=== PATIENT | female | born 1965 | race Caucasian/White ===

== ENCOUNTER 2017-07-23 06:14 | Day surgery (SDC) | payer OTHER ==
[2017-07-20 12:34] VITALS: BMI 22.3
[2017-07-23 07:14] VITALS: O2SAT 100
[2017-07-23] MEDS ORDERED: Lactated Ringer's 1,000 ML IV ONE (07:27)
[2017-07-23] MEDS ORDERED: cefOXitin IV 1 gm in Dextrose 0 GM/0 ML BAG IVPB ONE (07:42)
[2017-07-23] MEDS ORDERED: Strong Iodine Topical Sol. 5%-10% ONE (07:47)
[2017-07-23] MEDS ORDERED: Lidocaine 2% w Epi 1:100,000 Inj IJ ONE (08:12)
[2017-07-23] MEDS ORDERED: Propofol 10 mg/ml Inj (20 ML) ONE (08:15)
[2017-07-23] MEDS ORDERED: Midazolam 2 MG/2 ML VIAL ONE (08:15)
[2017-07-23] MEDS ORDERED: Labetalol 25mg/5ml Syringe ONE (09:10)
[2017-07-23 11:22] VITALS: BP 118/67; PULSE 64; RESP 18; TEMP 97.6
--- NOTE | 2017-07-29 10:31 | OP ---
PROCEDURE DATE: 07/23/2017 PREOPERATIVE DIAGNOSIS: Cervical intraepithelial neoplasia, grade 1. POSTOPERATIVE DIAGNOSIS: Cervical intraepithelial neoplasia, grade 1. OPERATIVE INDICATION: This is a 51-year-old who desires hysterectomy with abnormal Pap smear and CHICO 1 on colposcopy. This is an indicated diagnostic procedure prior to performing hysterectomy. The patient was discussed with risks, benefits and alternatives and agreed to proceed. OPERATION PERFORMED: Deep loop electrosurgical excision procedure. SURGEON: Nida Gramajo MD. TYPE OF ANESTHESIA: General anesthesia. PERTINENT FINDINGS: Bimanual examination revealed midline uterus. Cervix did not appear to have any gross lesions. Lugol's solution revealed minimal areas of non uptake. SPECIMEN: Ectocervix with anterior and posterior portions with 1 stitch at 12 o' clock marking the anterior portion and 2 stitches at 6 o' clock marking the posterior portion. ESTIMATED BLOOD LOSS: Minimal. DESCRIPTION OF THE PROCEDURE: The patient was taken to the OR where she was placed and draped in the usual sterile fashion. General anesthesia was induced without difficulty. Preoperative exam was done with findings as above. At this time, the cervix was visualized with a coated speculum. Lugol's solution was painted along the entire cervix and vaginal wall. Areas of non uptake were noted. A 10 mL of lidocaine with epinephrine was injected circumferentially along the cervix. The loop electrode was used to remove the anterior and posterior portion of the cervix separately, this was sent to pathology. Ball loop electrode was used to obtain hemostasis. The bed of the cervical tissue Nida Gramajo MD
== END 2017-07-23 11:21 | disposition home or self-care (01) ==
LOC: C.SDS 06:14
PROVIDERS: ATTEND Obstetrics & Gynecology
DX: N87.0 Mild cervical dysplasia (principal)
CPT/HCPCS: 57460; 58110; 88305; J1100; J2001; J2250; J2405; J2704; J3010; J7120

== ENCOUNTER 2017-08-27 10:11 | Day surgery (SDC) | payer OTHER ==
[2017-07-20 12:34] VITALS: BMI 22.3
[2017-08-27] MEDS ORDERED: Propofol 10 mg/ml Inj (20 ML) ONE (13:14)
[2017-08-27] MEDS ORDERED: Midazolam 2 MG/2 ML VIAL ONE (13:14)
[2017-08-27] MEDS ORDERED: Rocuronium 10 mg/ml (5 ml) ONE (13:28)
[2017-08-27] MEDS ORDERED: Succinylcholine Chloride 20 mg/ml Syr (5 ml) IV ONE (13:28)
[2017-08-27] MEDS ORDERED: Lidocaine Hydrochloride 5 ML INJ ONE (13:29)
[2017-08-27] MEDS ORDERED: cefOXitin IV 1 gm in Dextrose 2 GM/100 ML BAG IVPB ONE (13:32)
[2017-08-27] MEDS ORDERED: Lactated Ringer's 1,000 ML IV ONE ×2 (13:36→15:37)
[2017-08-27] MEDS ORDERED: Clindamycin 2% Vaginal Cream(40 gm) ONE (14:37)
[2017-08-27] MEDS ORDERED: Neostigmine Methylsulfate 3mg/3ml Syringe IV ONE (15:43)
[2017-08-27] MEDS ORDERED: Oxycodone/Acetaminophen 5/325 mg Tab PO PRN (16:03)
[2017-08-27] MEDS ORDERED: HYDROmorphone 0.5 mg/0.5 ml ISec IVP PRN (16:11)
[2017-08-27] MEDS ORDERED: Sodium Chloride 0.9% 1,000 ML IV SCH (16:15)
[2017-08-27] MEDS ORDERED: HYDROmorphone 1 mg/ml ISec ONE (16:31)
[2017-08-27] MEDS ORDERED: Sodium Chloride 0.9% 1,000 ML IV ONE (18:12)
[2017-08-28 04:45] VITALS: TEMP 98.7
[2017-08-28 07:06] LABS: CHLORIDE 102 mmol/L (98-107); POTASSIUM 3.5 mmol/L (3.6-5.2); SODIUM 134 mmol/L (132-148)
[2017-08-28 07:09] LABS: BLOOD UREA NITROGEN 7 mg/dL (7-17); CALCIUM 8.2 mg/dl (8.6-10.4); CARBON DIOXIDE 26 mmol/L (22-30); GFR AFRICAN-AMERICAN > 60; GLUCOSE,RANDOM 82 mg/dL (65-105); HEMATOCRIT 34.9 % (34.0-47.0); MEAN CORPUSCULAR HEMOGLOBIN 30.6 pg (27.0-31.0); MEAN CORPUSCULAR HGB CONC 33.6 g/dL (33.0-37.0); MEAN PLATELET VOLUME 9.4 fL (7.2-11.7); RED CELL DISTRIBUTION WIDTH 12.6 % (11.5-14.5)
[2017-08-28 07:15] LABS: WHITE BLOOD COUNT 9.7 K/uL (4.8-10.8)
[2017-08-28 09:18] VITALS: BP 106/65; PULSE 84; RESP 18; O2SAT 98
[2017-08-28] MEDS ORDERED: Pneumococcal 23-Valent Vaccine IM ONE (10:00)
[2017-08-28] MEDS ORDERED: Influenza Vaccine 60 mcg/0.5 mL SYR (4YR UP) IM ONE (10:00)
--- NOTE | 2017-09-07 10:45 | OP ---
PROCEDURE DATE: 08/27/2017 PREOPERATIVE DIAGNOSES: Stage 2 uterovaginal prolapse, cervical intraepithelial neoplasia 1, chronic pelvic pain. POSTOPERATIVE DIAGNOSES: Stage 2 uterovaginal prolapse, cervical intraepithelial neoplasia 1, chronic pelvic pain. OPERATIVE PROCEDURES: Total laparoscopic hysterectomy, bilateral salpingo-oophorectomy, lysis of adhesions, cystoscopy. SURGEON: Nida Gramajo MD OPERATING ROOM TECHNOLOGIST: Brielle Cartwright MD OPERATIVE FINDINGS: Adhesions of the cervix to the anterior vaginal fornix, small fibroid uterus, normal appearing uterus, tubes and ovaries, bilateral ureteral jet seen on cystoscopy at the end of the procedure. OPERATIVE INDICATIONS: This is a 51-year-old with chronic pelvic pain and dyspareunia. She was found to have stage 2 uterovaginal prolapse with symptomatic bladder discomfort. She was also found to have cervical intraepithelial neoplasia 1 on colposcopy and a LEEP was done prior to procedure to confirm no further pathology. Endometrial biopsy was benign. The patient was consented to the following procedure and also discussed that the procedure may not relieve the entirety of her pelvic pain. OPERATIVE PROCEDURE: After induction of satisfactory general endotracheal anesthesia, the patient was placed in dorsal lithotomy position with preoperative antibiotics. The patient was prepped and draped in the usual sterile fashion. Exam was done under anesthesia with above findings. The bladder was inflated with Buckley the entire procedure and a VCare uterine manipulator was placed in the uterus. We then turned to the portion of the procedure. The patient was entered with a 5-mm Optiview trocar, visually directed entry. It was confirmed that the OG tube was functioning prior to entering the body. Abdominal survey was done with the above findings. Additional 5-mm trocars were placed in the bilateral lower quadrants. The intraabdominal survey was done with above findings with adhesions, but no other findings. Normal-appearing tubes and ovaries except a small fibroid uterus. A LigaSure device was used for electrosurgery. The respective round ligament was coagulated and transected. The posterior leaf of the broad ligament was opened and the uteroovarian ligament was transected and coagulated. The anterior leaf of the broad ligament was dissected down to the level of the vesicouterine fold and the bladder was dissected off the cervical cuff. Same procedure was repeated on the opposite side. The uterine artery was coagulated and dissected carefully at the level of the cardinal ligament. After the uterine artery was secured, the vaginal cuff delineated by the VCare, was entered using a monopolar hook circumferentially until the cervix was detached from the top of the vagina. The speculum was removed from the vagina in its entirety. Attention was then turned to the adnexa. The infundibulopelvic ligaments were coagulated and transected after confirming that the ureter was not in the surgical field. After confirming hemostasis, additional FloSeal was placed in the operative field. Cystoscopy was then done using a degree cystoscope, confirming bilateral ureteral jets and no foreign bodies in the bladder. The Buckley was replaced to drain the bladder and the vagina was packed with gauze, infused with clindamycin antibiotic gel. There was good support of the vaginal cuff and no additional anterior or posterior repair was needed. The vaginal cuff was closed with interrupted sutures of 0 Vicryl. The abdominal incisions were closed with 4-0 Monocryl after exsufflating and deflating the abdomen of CO2. All counts were correct at the end of the procedure. There was no evidence of injury. The patient was awake, and taken to the recovery room in stable condition. Nida Gramajo MD
== END 2017-08-28 15:51 | disposition home or self-care (01) ==
LOC: C.9S 10:11 → C.SDS 10:11 → UNDOADMIN 10:11 → C.9S 16:04 → C.6T 18:25 → C.SDS 08-28 15:51
PROVIDERS: ATTEND Obstetrics & Gynecology
DX: N81.2 Incomplete uterovaginal prolapse (principal); N84.0 Polyp of corpus uteri; N87.0 Mild cervical dysplasia; G89.29 Other chronic pain
CPT/HCPCS: 36415; 58571; 80048; 85027; 86850; 86900; 88307; C2615; J0694; J1170; J2250; J2704; J2710; J3010; J7030; J7040; J7120

== ENCOUNTER 2018-01-05 15:33 | Observation (INO) | payer OTHER ==
[2018-01-05 15:34] VITALS: BMI 22.3
--- NOTE | 2018-01-05 16:03 | C.PDOC ---
History Of Present Illness REFERRED BY DR GUTIERREZ. S/P SLIP AND FALL 5 DAYS AGO WHILE GETTING INTO BUS. FELL FORWARD, STRUCK FRONT OF CHEST. THEN FELL BACKWARDS UNTO BUTTOCK AREA. CO PERSIST MIDSTERNAL CHEST WALL PAIN LOCALIZED WORSE W MOVEMENT, DEEP BREATHING. NO LINK. NO ASSOC SOB, NV, DIZZY. BUTTOCK PAIN LOCALIZED WORSE W MOVEMENT, SITTING. EXAM MILD DIST NONTOXIC LUNGS CTA B/L NO W/R/R +REPRODUC PLEURITIC PAIN MIDSTERNAL CHEST WALL GEN TEND MIDSTERNAL, ATRAUM NO SWELL DEFORM OR CREPITUS SKIN INTACT CV RRR EXT +R BUTTOCK CONTUSION W LOCAL TEND BACK NO LS TEND, NO SACRAL TEND NEURO INTACT REMAINDER NEG Time Seen by Provider: 01/05/18 15:44 Chief Complaint (Nursing): Chest Pain History Per: Patient History/Exam Limitations: no limitations Onset/Duration Of Symptoms: Days Current Symptoms Are (Timing): Still Present Severity: Moderate Past Medical History Reviewed: Historical Data, Nursing Documentation, Vital Signs Vital Signs: Last Vital Signs Temp 97.5 F L 01/05/18 15:49 Pulse 76 01/05/18 16:21 Resp 12 01/05/18 16:21 BP 146/87 01/05/18 16:05 Pulse Ox 100 01/05/18 16:40 - Medical History PMH: Asthma Denies: Chronic Kidney Disease Other Surgeries: Hx of surgeries Family History: States: No Known Family Hx - Social History Hx Tobacco Use: No Hx Alcohol Use: No Hx Substance Use: No - Immunization History Hx Tetanus Toxoid Vaccination: No Hx Influenza Vaccination: No Hx Pneumococcal Vaccination: No Review Of Systems Except As Marked, All Systems Reviewed And Found Negative. Constitutional: Negative for: Fever, Chills Cardiovascular: Positive for: Chest Pain Respiratory: Negative for: Shortness of Breath Gastrointestinal: Negative for: Nausea, Vomiting Musculoskeletal: Positive for: Other (buttock pain) Neurological: Negative for: Weakness, Numbness, Dizziness Physical Exam - Physical Exam Appears: Non-toxic, Other (mild distress) Skin: Normal Color, Warm Head: Atraumatic, Normacephalic Eye(s): bilateral: Normal Inspection Chest: No Deformity, Tenderness (chest wall gen tenderness midsternal), Other ( reproducible pleuritic pain, atraumatic, no swelling, no crepitus) Cardiovascular: Other (RRR) Respiratory: Normal Breath Sounds, No Accessory Muscle Use, No Rales, No Rhonchi , No Wheezing Back: No Paraspinal Tenderness, Other (no sacral tenderness ) Extremity: Other (right buttock contusion with local tenderness) Neurological/Psych: Oriented x3, Normal Speech, Normal Motor, Normal Sensation ED Course And Treatment - Laboratory Results Result Diagrams: 01/05/18 16:19 01/05/18 16:19 ECG: Interpreted By Me ECG Rhythm: Sinus Rhythm ECG Interpretation: Normal Rate From EC O2 Sat by Pulse Oximetry: 100 (RA) Pulse Ox Interpretation: Normal Progress - Re-Evaluation Re-evaluation Note: 01/05/18 16:07 D/W DR GUTIERREZ, REQUESTS ADMISSION HOSPITALIST. WILL CONSULT. 01/05/18 16:55 D/W DR ANN STATES SAW PT IN CLINIC, PT INITIALLY W [facility] APPEARANCE DURING OFFICE EVAL TODAY. 01/05/18 17:00 D/W DR MORRISON AWARE OF ER FINDINGS. REQUESTS DIMER, BNP, ASA WILL ADMIT - Data Reviewed Data Reviewed: Lab, Diagnostic imaging, EKG, Old records - Continuity of Care Discussed patient case with:: Patient, On-call PMD-pt unassigned Discussed pt. case with erp consultant/specialty: Cardiology Medical Decision Making Medical Decision Making: Plan: --Labs --CXR --X-ray- Sternum --Toradol IV Disposition Counseled Patient/Family Regarding: Studies Performed, Diagnosis - Disposition Disposition: HOSPITALIZED Disposition Time: 17:02 Condition: STABLE Forms: [facility] (Welsh) - POA Present On Arrival: Falls Or Trauma - Clinical Impression Clinical Impression: Chest pain, Contusion, buttock - Scribe Statement The provider has reviewed the documentation as recorded by the Scribe Jose Antonio Khan Provider Attestation: All medical [facility] entries [facility] by the [facility] were at my direction and personally dictated by me. I have reviewed the chart and agree that the record accurately reflects my personal performance of the history, physical exam, medical decision making, and the department course for this patient. I have also personally directed, reviewed, and agree with the discharge instructions and disposition. Decision To Admit - Pt Status Changed To: Hospital Disposition Of: Observation - . Bed Request Type: Telemetry Admitting Physician: Lori Morrison Patient Diagnosis: Chest pain, Contusion, buttock
[2018-01-05 16:23] LABS: BASO # 0.1 K/uL (0.0-0.2); BASO % 0.8 % (0.0-2.0); EOS # 0.1 K/uL (0.0-0.7); EOS % 0.9 % (0.0-4.0); LYMPH # 2.7 K/uL (1.0-4.3); LYMPH % 38.5 % (20.0-40.0); MEAN CORPUSCULAR HEMOGLOBIN 29.8 pg (27.0-31.0); MEAN CORPUSCULAR HGB CONC 33.5 g/dL (33.0-37.0); MEAN PLATELET VOLUME 9.2 fL (7.2-11.7); MONO # 0.5 K/uL (0.0-0.8); MONO % 6.6 % (0.0-10.0); NEUT # 3.7 K/uL (1.8-7.0); NEUT % 53.2 % (50.0-75.0); NRBC % 0.2 % (0.0-2.0); RED CELL DISTRIBUTION WIDTH 13.1 % (11.5-14.5)
[2018-01-05 16:34] LABS: HEMOGLOBIN 14.9 g/dL (11.0-16.0); MEAN CELL VOLUME 88.9 fL (81.0-99.0)
[2018-01-05 16:47] LABS: BLOOD UREA NITROGEN 12 mg/dL (7-17); CALCIUM 9.4 mg/dl (8.6-10.4); GFR AFRICAN-AMERICAN > 60; GFR NON-AFRICAN AMERICAN > 60
--- NOTE | 2018-01-05 17:45 | CP.PCM.HP ---
<Bertin Mullen - Last Filed: 01/05/18 17:57> History of Present Illness - History of Present Illness History of Present Illness: H&P for Dr Jaeger's Service This is a 52 y/o F with no pmhx presenting with c/o chest pain x 5 days. She states that 5 days ago she was trying to board the bus when she slipped, fell forward and hit her chest against the stairs of the bus. When she went to stand up straight she then fell back and landed, seated on the floor. She has had back pain and chest pain for the past 5 days. She went to see Dr. Pruett today who had her bring a script to the ED for further workup of atypical chest pain. She denies any difficulty breathing but does admit that it hurts to take deep breaths in. No fevers or chills. She has pains in her abdomen, localized to the lower quadrants bilaterally which she indicates did make contact during her fall. Additionally she has pain in the lower spinal area- sacrum/coccyx. She has been taking ibuprofen at home for the pain but states that it only helps a little bit. PMD: Dr. Osei Pmhx: denies Pshx: total hysterectomy Meds: none Allergies: denies Famhx: mother has HTN Social hx: does not drink smoke or use drugs Present on Admission - Present on Admission Any Indicators Present on Admission: No Review of Systems - Constitutional Constitutional: absent: Chills, Fever, Weakness - EENT Eyes: absent: Change in Vision - Cardiovascular Cardiovascular: Chest Pain, Chest Pain at Rest. absent: Dyspnea, Pedal Edema, Syncope - Respiratory Respiratory: Pain on Inspiration (deep). absent: Cough, Dyspnea, Dyspnea on Exertion, Wheezing - Gastrointestinal Gastrointestinal: As Per HPI, Abdominal Pain. absent: Diarrhea, Hematemesis, Hematochezia, Nausea, Vomiting - Genitourinary Genitourinary: absent: Dysuria, Flank Pain, Hematuria - Musculoskeletal Musculoskeletal: As Per HPI, Back Pain. absent: Numbness, Tingling Additional comments: back pain, chest pain, pelvic/lower abdomen pain - Neurological Neurological: absent: Numbness, Focal Weakness, Paresthesias, Tingling, Weakness Past Patient History - Infectious Disease Hx of Infectious Diseases: None - Past Medical History & Family History Past Medical History?: Yes - Past Social History Smoking Status: Never Smoked - CARDIAC Hx Cardiac Disorders: No - PULMONARY Hx Asthma: Yes - NEUROLOGICAL Hx Neurological Disorder: No - HEENT Hx HEENT Problems: No - RENAL Hx Chronic Kidney Disease: No - ENDOCRINE/METABOLIC Hx Endocrine Disorders: No - HEMATOLOGICAL/ONCOLOGICAL Hx Blood Disorders: No - INTEGUMENTARY Hx Dermatological Problems: No - MUSCULOSKELETAL/RHEUMATOLOGICAL Hx Musculoskeletal Disorders: No Hx Falls: No - GASTROINTESTINAL Hx Gastrointestinal Disorders: No - GENITOURINARY/GYNECOLOGICAL Hx Genitourinary Disorders: Yes Other/Comment: HX: LOW GRADE SQUAMOUS INTRAEPITHELIAL LESION, UTERO VAGINAL PROLAPSED, STRESS INCONTINENCE. - PSYCHIATRIC Hx Substance Use: No - SURGICAL HISTORY Hx Surgeries: Yes Hx Herniorrhaphy: Yes (RIGHT INGUINAL) Other/Comment: CERVICAL LEEP - ANESTHESIA Hx Anesthesia: Yes Hx Anesthesia Reactions: No Hx Malignant Hyperthermia: No Meds Allergies/Adverse Reactions: Allergies Allergy/AdvReac Type Severity Reaction Status Date / Time No Known Allergies Allergy Verified 01/05/18 18:44 Physical Exam - Head Exam Head Exam: ATRAUMATIC, NORMOCEPHALIC - Eye Exam Eye Exam: EOMI, Normal appearance - ENT Exam ENT Exam: Mucous Membranes Moist - Respiratory Exam Respiratory Exam: Clear to Auscultation Bilateral, NORMAL BREATHING PATTERN. absent: Rales, Rhonchi, Wheezes - Cardiovascular Exam Cardiovascular Exam: REGULAR RHYTHM, +S1, +S2 - GI/Abdominal Exam GI & Abdominal Exam: Normal Bowel Sounds, Soft, Tenderness (lower quadrants b/l) . absent: Distended - Extremities Exam Extremities exam: Negative for: calf tenderness, pedal edema, tenderness - Back Exam Back exam: tenderness (sacral area/coccyx) - Neurological Exam Neurological exam: Alert, Oriented x3 - Psychiatric Exam Psychiatric exam: Normal Affect, Normal Mood - Skin Skin Exam: Dry, Warm Additional comments: no bruising/gross deformities Results - Vital Signs Recent Vital Signs: Last Vital Signs Temp 97.5 F L 01/05/18 15:49 Pulse 77 01/05/18 17:38 Resp 12 01/05/18 17:38 BP 156/87 H 01/05/18 17:38 Pulse Ox 100 01/05/18 17:38 - Labs Result Diagrams: 01/05/18 16:19 01/05/18 16:19 Labs: Laboratory Results - last 24 hr 01/05/18 01/05/18 16:19 16:19 WBC 7.0 RBC 5.00 Hgb 14.9 D Hct 44.5 MCV 88.9 D MCH 29.8 MCHC 33.5 RDW 13.1 Plt Count 331 MPV 9.2 Neut % (Auto) 53.2 Lymph % (Auto) 38.5 Dent % (Auto) 6.6 Eos % (Auto) 0.9 Baso % (Auto) 0.8 Neut # (Auto) 3.7 Lymph # (Auto) 2.7 Dent # (Auto) 0.5 Eos # (Auto) 0.1 Baso # (Auto) 0.1 Sodium 143 Potassium 3.7 Chloride 101 Carbon Dioxide 24 Anion Gap 22 H BUN 12 Creatinine 0.5 L Est GFR ( Amer) > 60 Est GFR (Non-Af Amer) > 60 Random Glucose 89 Calcium 9.4 Troponin I < 0.0120 Assessment & Plan - Assessment and Plan (Free Text) Assessment: 52 year old female presenting with 5 days of chest pain and back pain following traumatic fall Plan: Chest pain Admission to tele Consult placed to Dr. Ramirez- recs appreciated CXR review- no gross deformity/fx noted. Lungs clear- follow up official read Xray sternum reviewed-no gross deformity noted- follow up official read Trop negative x 1; NI panel q6 follow up results Follow up D-Dimer Follow up Lipid panel Follow up BNP EKG reviewed- NSR, no acute ST changes Toradol 30mg IV q6hrs prn moderate pain Likely to be MSK given nature of fall. 3 view Xray of b/l pelvis has been ordered for pain in pelvis relating to the fall. Consider further imaging of the L-spine/sacrum if deemed necessary. Prophylaxis Protonix 40mg PO daily Lovenox 40mg SC daily Zofran 4mg IV q6hrs prn nausea Heart healthy diet Case discussed with Dr. Heide Mullen D.O. <Stacy Jaeger - Last Filed: 01/06/18 11:51> Results - Vital Signs Recent Vital Signs: Last Vital Signs Temp 97.7 F 01/06/18 08:13 Pulse 83 01/06/18 08:13 Resp 20 01/06/18 08:13 BP 109/70 01/06/18 08:13 Pulse Ox 96 01/06/18 08:13 - Labs Result Diagrams: 01/05/18 16:19 01/06/18 04:13 Labs: Laboratory Results - last 24 hr 01/05/18 01/05/18 01/05/18 16:19 16:19 17:33 WBC 7.0 RBC 5.00 Hgb 14.9 D Hct 44.5 MCV 88.9 D MCH 29.8 MCHC 33.5 RDW 13.1 Plt Count 331 MPV 9.2 Neut % (Auto) 53.2 Lymph % (Auto) 38.5 Dent % (Auto) 6.6 Eos % (Auto) 0.9 Baso % (Auto) 0.8 Neut # (Auto) 3.7 Lymph # (Auto) 2.7 Dent # (Auto) 0.5 Eos # (Auto) 0.1 Baso # (Auto) 0.1 D-Dimer, Quantitative < 200 Sodium 143 Potassium 3.7 Chloride 101 Carbon Dioxide 24 Anion Gap 22 H BUN 12 Creatinine 0.5 L Est GFR ( Amer) > 60 Est GFR (Non-Af Amer) > 60 Random Glucose 89 Hemoglobin A1c Calcium 9.4 Total Bilirubin AST ALT Alkaline Phosphatase Total Creatine Kinase CK-MB (Mass) Troponin I < 0.0120 NT-Pro-B Natriuret Pep Total Protein Albumin Globulin Albumin/Globulin Ratio Triglycerides Cholesterol LDL Cholesterol Direct HDL Cholesterol 01/05/18 01/05/18 01/06/18 17:33 21:50 04:13 WBC RBC Hgb Hct MCV MCH MCHC RDW Plt Count MPV Neut % (Auto) Lymph % (Auto) Dent % (Auto) Eos % (Auto) Baso % (Auto) Neut # (Auto) Lymph # (Auto) Dent # (Auto) Eos # (Auto) Baso # (Auto) D-Dimer, Quantitative Sodium 139 Potassium 3.9 Chloride 104 Carbon Dioxide 27 Anion Gap 12 BUN 16 Creatinine 0.6 L Est GFR ( Amer) > 60 Est GFR (Non-Af Amer) > 60 Random Glucose 77 Hemoglobin A1c Calcium 8.9 Total Bilirubin 0.4 AST 16 ALT 28 Alkaline Phosphatase 73 Total Creatine Kinase 49 CK-MB (Mass) 1.01 Troponin I < 0.0120 NT-Pro-B Natriuret Pep 33.1 Total Protein 7.2 Albumin 3.9 Globulin 3.3 Albumin/Globulin Ratio 1.2 Triglycerides 54 D Cholesterol 156 LDL Cholesterol Direct 72 HDL Cholesterol 61 01/06/18 01/06/18 01/06/18 04:13 04:13 06:14 WBC RBC Hgb Hct MCV MCH MCHC RDW Plt Count MPV Neut % (Auto) Lymph % (Auto) Dent % (Auto) Eos % (Auto) Baso % (Auto) Neut # (Auto) Lymph # (Auto) Dent # (Auto) Eos # (Auto) Baso # (Auto) D-Dimer, Quantitative Sodium Potassium Chloride Carbon Dioxide Anion Gap BUN Creatinine Est GFR ( Amer) Est GFR (Non-Af Amer) Random Glucose Hemoglobin A1c 5.7 Calcium Total Bilirubin AST ALT Alkaline Phosphatase Total Creatine Kinase 40 40 CK-MB (Mass) 0.53 0.64 Troponin I < 0.0120 < 0.0120 NT-Pro-B Natriuret Pep Total Protein Albumin Globulin Albumin/Globulin Ratio Triglycerides Cholesterol LDL Cholesterol Direct HDL Cholesterol Attending/Attestation - Attestation I have personally seen and examined this patient.: Yes I have fully participated in the care of the patient.: Yes I have reviewed all pertinent clinical information: Yes Notes (Text): Patient was seen and examined. History taken with the resident at ER. Patient has chest pain last 5 dyas. tightness of chest with dizziness and mild nausea. This started after the fall. She is a nonsmoker. Denies past history of heart issues and denies family history of heart disease. I agree with the residents documentation of the assessment and the plan. discussed with the resident
--- NOTE | 2018-01-05 18:18 | RAD ---
HISTORY: TRAUMA COMPARISON: Chest x-ray performed 07/20/17, CT chest without contrast performed 08/18/17 TECHNIQUE: Chest PA and lateral FINDINGS: LUNGS: Biapical pleural thickening. No focal consolidation. Re-identified tiny nodule at the level of the left medial lower lobe. Please note that chest x-ray has limited sensitivity for the detection of pulmonary masses. PLEURA: No significant pleural effusion identified. No definite pneumothorax . CARDIOVASCULAR: The cardiomediastinal silhouette appears within normal limits of size. OSSEOUS STRUCTURES: No acute osseous abnormality identified. VISUALIZED UPPER ABDOMEN: Unremarkable. OTHER FINDINGS: None. IMPRESSION: No acute findings identified. See above.
--- NOTE | 2018-01-05 18:19 | RAD ---
Indication: Trauma Sternum radiographs Comparison: Chest x-ray performed the same day. Findings: No acute displaced fracture identified. Impression: No acute displaced fracture identified.
--- NOTE | 2018-01-05 22:15 | CP.PCM.CON ---
History of Present Illness - History of Present Illness History of Present Illness: This is a 52 y/o F with no pmhx presenting with c/o chest pain x 5 days. She states that 5 days ago she was trying to board the bus when she slipped, fell forward and hit her chest against the stairs of the bus. When she went to stand up straight she then fell back and landed, seated on the floor. She has had back pain and chest pain for the past 5 days. She went to see Dr. Pruett today who had her bring a script to the ED for further workup of atypical chest pain. She denies any difficulty breathing but does admit that it hurts to take deep breaths in. No fevers or chills. She has pains in her abdomen, localized to the lower quadrants bilaterally which she indicates did make contact during her fall. Additionally she has pain in the lower spinal area- sacrum/coccyx. She has been taking ibuprofen at home for the pain but states that it only helps a little bit. PMD: Dr. Osei Pmhx: denies Pshx: total hysterectomy Meds: none Allergies: denies Famhx: mother has HTN Social hx: does not drink smoke or use drugs Present on Admission - Present on Admission Any Indicators Present on Admission: No Review of Systems - Constitutional Constitutional: absent: Chills, Fever, Weakness - EENT Eyes: absent: Change in Vision - Cardiovascular Cardiovascular: Chest Pain, Chest Pain at Rest. absent: Dyspnea, Pedal Edema, Syncope - Respiratory Respiratory: Pain on Inspiration (deep). absent: Cough, Dyspnea, Dyspnea on Exertion, Wheezing - Gastrointestinal Gastrointestinal: As Per HPI, Abdominal Pain. absent: Diarrhea, Hematemesis, Hematochezia, Nausea, Vomiting - Genitourinary Genitourinary: absent: Dysuria, Flank Pain, Hematuria - Musculoskeletal Musculoskeletal: As Per HPI, Back Pain. absent: Numbness, Tingling Additional comments: back pain, chest pain, pelvic/lower abdomen pain - Neurological Neurological: absent: Numbness, Focal Weakness, Paresthesias, Tingling, Weakness Physical Exam - Head Exam Head Exam: ATRAUMATIC, NORMOCEPHALIC - Eye Exam Eye Exam: EOMI, Normal appearance - ENT Exam ENT Exam: Mucous Membranes Moist - Respiratory Exam Respiratory Exam: Clear to Auscultation Bilateral, NORMAL BREATHING PATTERN. absent: Rales, Rhonchi, Wheezes - Cardiovascular Exam Cardiovascular Exam: REGULAR RHYTHM, +S1, +S2 - GI/Abdominal Exam GI & Abdominal Exam: Normal Bowel Sounds, Soft, Tenderness (lower quadrants b/l) . absent: Distended - Extremities Exam Extremities exam: Negative for: calf tenderness, pedal edema, tenderness - Back Exam Back exam: tenderness (sacral area/coccyx) - Neurological Exam Neurological exam: Alert, Oriented x3 - Psychiatric Exam Psychiatric exam: Normal Affect, Normal Mood - Skin Skin Exam: Dry, Warm Additional comments: no bruising/gross deformities Past Patient History - Infectious Disease Hx of Infectious Diseases: None - Past Medical History & Family History Past Medical History?: Yes - Past Social History Smoking Status: Never Smoked - CARDIAC Hx Cardiac Disorders: No - PULMONARY Hx Asthma: Yes - NEUROLOGICAL Hx Neurological Disorder: No - HEENT Hx HEENT Problems: No - RENAL Hx Chronic Kidney Disease: No - ENDOCRINE/METABOLIC Hx Endocrine Disorders: No - HEMATOLOGICAL/ONCOLOGICAL Hx Blood Disorders: No - INTEGUMENTARY Hx Dermatological Problems: No - MUSCULOSKELETAL/RHEUMATOLOGICAL Hx Musculoskeletal Disorders: No Hx Falls: No - GASTROINTESTINAL Hx Gastrointestinal Disorders: No - GENITOURINARY/GYNECOLOGICAL Hx Genitourinary Disorders: Yes Other/Comment: HX: LOW GRADE SQUAMOUS INTRAEPITHELIAL LESION, UTERO VAGINAL PROLAPSED, STRESS INCONTINENCE. - PSYCHIATRIC Hx Substance Use: No - SURGICAL HISTORY Hx Surgeries: Yes Hx Herniorrhaphy: Yes (RIGHT INGUINAL) Other/Comment: CERVICAL LEEP - ANESTHESIA Hx Anesthesia: Yes Hx Anesthesia Reactions: No Hx Malignant Hyperthermia: No Meds Allergies/Adverse Reactions: Allergies Allergy/AdvReac Type Severity Reaction Status Date / Time No Known Allergies Allergy Verified 01/07/18 12:17 - Medications Medications: Current Medications Enoxaparin Sodium (Lovenox) 40 mg SC DAILY [facility] Ketorolac Tromethamine (Toradol) 30 mg IVP Q6 PRN PRN Reason: Pain, moderate (4-7) Ondansetron HCl (Zofran Inj) 4 mg IVP Q6 PRN PRN Reason: Nausea/Vomiting Pantoprazole Sodium (Protonix Ec Tab) 40 mg PO DAILY [facility] Results - Vital Signs Recent Vital Signs: Last Vital Signs Temp 97.5 F L 01/05/18 15:49 Pulse 88 01/05/18 19:33 Resp 12 01/05/18 17:38 BP 156/87 H 01/05/18 17:38 Pulse Ox 100 01/05/18 17:38 - Labs Result Diagrams: 01/07/18 07:15 01/07/18 07:15 Labs: Laboratory Results - last 24 hr 01/05/18 01/05/18 01/05/18 16:19 16:19 17:33 WBC 7.0 RBC 5.00 Hgb 14.9 D Hct 44.5 MCV 88.9 D MCH 29.8 MCHC 33.5 RDW 13.1 Plt Count 331 MPV 9.2 Neut % (Auto) 53.2 Lymph % (Auto) 38.5 [place] % (Auto) 6.6 Eos % (Auto) 0.9 Baso % (Auto) 0.8 Neut # (Auto) 3.7 Lymph # (Auto) 2.7 [place] # (Auto) 0.5 Eos # (Auto) 0.1 Baso # (Auto) 0.1 D-Dimer, Quantitative < 200 Sodium 143 Potassium 3.7 Chloride 101 Carbon Dioxide 24 Anion Gap 22 H BUN 12 Creatinine 0.5 L Est GFR ( Amer) > 60 Est GFR (Non-Af Amer) > 60 Random Glucose 89 Calcium 9.4 Total Creatine Kinase Troponin I < 0.0120 NT-Pro-B Natriuret Pep 01/05/18 01/05/18 17:33 21:50 WBC RBC Hgb Hct MCV MCH MCHC RDW Plt Count MPV Neut % (Auto) Lymph % (Auto) [place] % (Auto) Eos % (Auto) Baso % (Auto) Neut # (Auto) Lymph # (Auto) [place] # (Auto) Eos # (Auto) Baso # (Auto) D-Dimer, Quantitative Sodium Potassium Chloride Carbon Dioxide Anion Gap BUN Creatinine Est GFR ( Amer) Est GFR (Non-Af Amer) Random Glucose Calcium Total Creatine Kinase 49 Troponin I NT-Pro-B Natriuret Pep 33.1 Assessment & Plan - Assessment and Plan (Free Text) Assessment: 52 year old female presenting with 5 days of chest pain and back pain following traumatic fall Plan: Chest pain CXR review- no gross deformity/fx noted. Lungs clear- follow up official read Xray sternum reviewed-no gross deformity noted- follow up official read Trop negative x 1; NI panel q6 follow up results Follow up D-Dimer Follow up Lipid panel Follow up BNP EKG reviewed- NSR, no acute ST changes Toradol 30mg IV q6hrs prn moderate pain Likely to be MSK given nature of fall. 3 view Xray of b/l pelvis has been ordered for pain in pelvis relating to the fall. Consider further imaging of the L-spine/sacrum if deemed necessary. Prophylaxis Protonix 40mg PO daily Lovenox 40mg SC daily Zofran 4mg IV q6hrs prn nausea Heart healthy diet
[2018-01-05 22:19] LABS: CK-MB 1.01 ng/mL (0.0-3.38)
[2018-01-06 04:46] LABS: ALB/GLOB RATIO 1.2 (1.0-2.1); ALBUMIN 3.9 g/dL (3.5-5.0); ALT/SGPT 28 U/L (9-52); AST/SGOT 16 U/L (14-36); BLOOD UREA NITROGEN 16 mg/dL (7-17); CALCIUM 8.9 mg/dl (8.6-10.4); CK-MB 0.53 ng/mL (0.0-3.38); GFR AFRICAN-AMERICAN > 60; GFR NON-AFRICAN AMERICAN > 60; HDL CHOLESTEROL 61 mg/dL (30-70); LDL CHOLESTEROL 72 mg/dL (0-129)
[2018-01-06 06:52] LABS: CK-MB 0.64 ng/mL (0.0-3.38)
--- NOTE | 2018-01-06 08:11 | RAD ---
PROCEDURE: HISTORY: trauma COMPARISON: None TECHNIQUE: AP view of the pelvis and applicable frog leg views obtained. FINDINGS: Pelvic fractures noted. Mild axial hip joint space narrowing -present bilaterally. SI joints and pubic symphyseal joint-unremarkable. Perceived increased concavity to the L5 superior endplate cupping lateral lumbar spine studies. Probable prominent Schmorl's node indentation here. IMPRESSION: No pelvic or hip fractures. Mild degenerative joint space narrowing of each hip. Probable Schmorl's node indentation-superior L5 endplate
[2018-01-06] MEDS: Pantoprazole 40 mg EC Tab PO SCH (10:31)
[2018-01-06] MEDS: Enoxaparin 40 mg Syringe SC SCH (10:31)
--- NOTE | 2018-01-06 11:00 | CP.PCM.PN ---
<Victor Manuel Salazar - Last Filed: 01/06/18 16:23> Subjective - Date & Time of Evaluation Date of Evaluation: 01/06/18 Time of Evaluation: 07:50 - Subjective Subjective: Medicine progress note for Dr. Jaeger Patient seen and examined at bedside. Patient denies chest pain at this time. She has no acute complaints at this time. No acute events overnight. Objective - Vital Signs/Intake and Output Vital Signs (last 24 hours): Temp Pulse Resp BP Pulse Ox 97.7 F 83 20 109/70 96 01/06/18 08:13 01/06/18 08:13 01/06/18 08:13 01/06/18 08:13 01/06/18 08:13 - Medications Medications: Current Medications Enoxaparin Sodium (Lovenox) 40 mg SC DAILY [facility] Last Admin: 01/06/18 10:31 Dose: 40 mg Ketorolac Tromethamine (Toradol) 30 mg IVP Q6 PRN PRN Reason: Pain, moderate (4-7) Ondansetron HCl (Zofran Inj) 4 mg IVP Q6 PRN PRN Reason: Nausea/Vomiting Pantoprazole Sodium (Protonix Ec Tab) 40 mg PO DAILY [facility] Last Admin: 01/06/18 10:31 Dose: 40 mg - Labs Labs: 01/05/18 16:19 01/06/18 04:13 - Constitutional Appears: No Acute Distress - Head Exam Head Exam: ATRAUMATIC, NORMOCEPHALIC - Eye Exam Eye Exam: EOMI, Normal appearance - ENT Exam ENT Exam: Mucous Membranes Moist - Respiratory Exam Respiratory Exam: Clear to Ausculation Bilateral, NORMAL BREATHING PATTERN. absent: Rales, Rhonchi, Wheezes - Cardiovascular Exam Cardiovascular Exam: REGULAR RHYTHM, +S1, +S2 - GI/Abdominal Exam GI & Abdominal Exam: Soft, Normal Bowel Sounds. absent: Distended, Tenderness - Extremities Exam Extremities Exam: absent: Pedal Edema, Tenderness - Neurological Exam Neurological Exam: Alert, Awake, Oriented x3 - Psychiatric Exam Psychiatric exam: Normal Affect, Normal Mood - Skin Skin Exam: Dry, Warm Assessment and Plan - Assessment and Plan (Free Text) Plan: Chest pain Consult placed to Dr. Ramirez- amelie appreciated CXR negative Xray sternum negative follow up echo to assess for myocardial contusion follow up Lexiscan stress test for tomorrow Cardiac enzymes negative x3 D-dimer unremarkable Lipid panel unremarkable BNP unremarkable EKG reviewed- NSR, no acute ST changes ASA 81 mg PO daily Toradol 30mg IV q6hrs prn moderate pain Prophylaxis Protonix 40mg PO daily Lovenox 40mg SC daily Zofran 4mg IV q6hrs prn nausea Heart healthy diet Disposition: Pending echo and Lexiscan prior to cardiology clearance for discharge. Discussed with Dr. Heide Salazar PGY-1 <Stacy Jaeger - Last Filed: 01/06/18 16:41> Objective - Vital Signs/Intake and Output Vital Signs (last 24 hours): Temp Pulse Resp BP Pulse Ox 97.7 F 91 H 20 109/70 96 01/06/18 08:13 01/06/18 13:11 01/06/18 08:13 01/06/18 08:13 01/06/18 08:13 - Medications Medications: Current Medications Aspirin (Aspirin Chewable) 81 mg PO DAILY [facility] Enoxaparin Sodium (Lovenox) 40 mg SC DAILY [facility] Last Admin: 01/06/18 10:31 Dose: 40 mg Ketorolac Tromethamine (Toradol) 30 mg IVP Q6 PRN PRN Reason: Pain, moderate (4-7) Ondansetron HCl (Zofran Inj) 4 mg IVP Q6 PRN PRN Reason: Nausea/Vomiting Pantoprazole Sodium (Protonix Ec Tab) 40 mg PO DAILY [facility] Last Admin: 01/06/18 10:31 Dose: 40 mg - Labs Labs: 01/05/18 16:19 01/06/18 04:13 Attending/Attestation - Attestation I have personally seen and examined this patient.: Yes I have fully participated in the care of the patient.: Yes I have reviewed all pertinent clinical information, including history, physical exam and plan: Yes Notes (Text): Seen and examined. patient was brought in for Chest tightness ,nausea and dizziness. Recent fall and patient stating her pain started after the fall patient has no complain. No chest pain. Discussed with Dr Ramirez. Recommend echo to r/o myocardial injury and stress test I agree with the documentation of the resident's assessment and the plan
--- NOTE | 2018-01-06 15:24 | CARD ---
APPROVED REPORT EXAM: Two-dimensional and M-mode echocardiogram with Doppler and color Doppler. Other Information Quality : GoodRhythm : INDICATION Chest Pain MYOCARDIAL CONTUSIO, CHEST CONTUSION 2D DIMENSIONS IVSd0.6 (0.7-1.1cm)LVDd4.4 (3.9-5.9cm) PWd0.7 (0.7-1.1cm)LVDs2.9 (2.5-4.0cm) FS (%) 33.2 %LVEF (%)62.0 (>50%) M-Mode DIMENSIONS RVDd1.83 (2.1-3.2cm)Left Atrium (MM)3.19 (2.5-4.0cm) IVSd0.65 (0.7-1.1cm)Aortic Root2.62 (2.2-3.7cm) LVDd4.46 (4.0-5.6cm)Aortic Cusp Exc.1.83 (1.5-2.0cm) PWd0.76 (0.7-1.1cm)FS (%) 48 % LVDs2.31 (2.0-3.8cm)LVEF (%)80 (>50%) Mitral Valve MV E Mlnhxjxj92.8cm/sMV A Jpswxdov01.2cm/sE/A ratio1.3 TDI E/Lateral E'0.0E/Medial E'0.0 Tricuspid Valve TR Peak Grozegsb093yb/sTR Peak Gr.[id number] LEFT VENTRICLE The left ventricle is normal size. There is normal left ventricular wall thickness. The left ventricular function is normal. The left ventricular ejection fraction is within the normal range. There is normal LV segmental wall motion. The left ventricular diastolic function is normal. RIGHT VENTRICLE The right ventricle is normal size. There is normal right ventricular wall thickness. The right ventricular systolic function is normal. ATRIA The left atrium size is normal. The right atrium size is normal. AORTIC VALVE The aortic valve is normal in structure. No aortic regurgitation is present. There is no aortic valvular stenosis. MITRAL VALVE The mitral valve is normal in structure. There is no evidence of mitral valve prolapse. There is no mitral valve stenosis. TRICUSPID VALVE The tricuspid valve is normal in structure. There is no tricuspid valve regurgitation noted. GREAT VESSELS The aortic root is normal in size. The IVC collapses <50% with inspiration. PERICARDIAL EFFUSION There is a trace loculated anterior pericardial effusion. <Conclusion> The left ventricle is normal size. There is normal left ventricular wall thickness. The left ventricular function is normal. The left ventricular ejection fraction is within the normal range. There is normal LV segmental wall motion. The left ventricular diastolic function is normal.
--- NOTE | 2018-01-06 16:17 | CARD ---
APPROVED REPORT EKG Measurement Heart [id number] <Conclusion> Normal sinus rhythm Nonspecific ST abnormality Abnormal ECG
--- NOTE | 2018-01-06 16:23 | CARD ---
APPROVED REPORT EKG Measurement Heart [id number] MS [id number] <Conclusion> Sinus rhythm with short MS Otherwise normal ECG
--- NOTE | 2018-01-06 21:42 | CP.PCM.PN ---
Subjective - Date & Time of Evaluation Date of Evaluation: 01/06/18 Time of Evaluation: 09:30 - Subjective Subjective: Patient seen and evaluated scheduled for stress test in am Physical examination - Additional Findings Additional findings: - Constitutional Appears: No Acute Distress - Head Exam Head Exam: ATRAUMATIC, NORMOCEPHALIC - Eye Exam Eye Exam: EOMI, Normal appearance - ENT Exam ENT Exam: Mucous Membranes Moist - Respiratory Exam Respiratory Exam: Clear to Ausculation Bilateral, NORMAL BREATHING PATTERN. absent: Rales, Rhonchi, Wheezes - Cardiovascular Exam Cardiovascular Exam: REGULAR RHYTHM, +S1, +S2 - GI/Abdominal Exam GI & Abdominal Exam: Soft, Normal Bowel Sounds. absent: Distended, Tenderness - Extremities Exam Extremities Exam: absent: Pedal Edema, Tenderness - Neurological Exam Neurological Exam: Alert, Awake, Oriented x3 - Psychiatric Exam Psychiatric exam: Normal Affect, Normal Mood - Skin Skin Exam: Dry, Warm, Intact Objective - Vital Signs/Intake and Output Vital Signs (last 24 hours): Temp Pulse Resp BP Pulse Ox 98.7 F 87 20 100/62 96 01/06/18 15:00 01/06/18 15:00 01/06/18 15:00 01/06/18 15:00 01/06/18 15:00 - Medications Medications: Current Medications Aspirin (Aspirin Chewable) 81 mg PO DAILY [facility] Last Admin: 01/06/18 18:27 Dose: 81 mg Enoxaparin Sodium (Lovenox) 40 mg SC DAILY [facility] Last Admin: 01/06/18 10:31 Dose: 40 mg Ketorolac Tromethamine (Toradol) 30 mg IVP Q6 PRN PRN Reason: Pain, moderate (4-7) Ondansetron HCl (Zofran Inj) 4 mg IVP Q6 PRN PRN Reason: Nausea/Vomiting Pantoprazole Sodium (Protonix Ec Tab) 40 mg PO DAILY [facility] Last Admin: 01/06/18 10:31 Dose: 40 mg - Labs Labs: 01/05/18 16:19 01/06/18 04:13 Assessment and Plan - Assessment and Plan (Free Text) Assessment: Chest pain -Patient is stable from a cardiac standpoint. -Patient scheduled for Lexiscan stress test Echo 01/06 with EF 80%, grossly normal, see full report. Ddimer negative NI negative EKG grossly normal, see full report CXR negative ASA 81 mg PO daily Toradol 30mg IV q6hrs prn moderate pain
[2018-01-07 07:29] LABS: BASO % 0.7 % (0.0-2.0); EOS # 0.1 K/uL (0.0-0.7); EOS % 1.9 % (0.0-4.0); LYMPH # 3.4 K/uL (1.0-4.3); LYMPH % 48.8 % (20.0-40.0); MEAN CELL VOLUME 89.4 fL (81.0-99.0); MEAN CORPUSCULAR HEMOGLOBIN 30.4 pg (27.0-31.0); MEAN PLATELET VOLUME 9.2 fL (7.2-11.7); MONO # 0.7 K/uL (0.0-0.8); MONO % 10.2 % (0.0-10.0); NEUT # 2.7 K/uL (1.8-7.0); NEUT % 38.4 % (50.0-75.0); NRBC % 0.1 % (0.0-2.0); RBC 4.29 Mil/uL (3.80-5.20); RED CELL DISTRIBUTION WIDTH 13.1 % (11.5-14.5); WHITE BLOOD COUNT 6.9 K/uL (4.8-10.8)
[2018-01-07 07:43] LABS: BLOOD UREA NITROGEN 16 mg/dL (7-17); CALCIUM 8.8 mg/dl (8.6-10.4); GFR AFRICAN-AMERICAN > 60; GFR NON-AFRICAN AMERICAN > 60
--- NOTE | 2018-01-07 11:37 | CP.PCM.PN ---
<Zaire Bertrand - Last Filed: 01/07/18 17:23> Subjective - Date & Time of Evaluation Date of Evaluation: 01/07/18 Time of Evaluation: 09:00 - Subjective Subjective: PGY2 Cardiology Progress Note for Dr. Ramirez Patient seen and examined at bedside. No acute distress. She denies chest pain or SOB at this time. Going for stress test today. Objective - Vital Signs/Intake and Output Vital Signs (last 24 hours): Temp Pulse Resp BP Pulse Ox 97.8 F 79 20 120/81 100 01/07/18 08:36 01/07/18 08:36 01/07/18 08:36 01/07/18 08:36 01/07/18 08:36 - Medications Medications: Current Medications Aspirin (Aspirin Chewable) 81 mg PO DAILY [facility] Last Admin: 01/06/18 18:27 Dose: 81 mg Enoxaparin Sodium (Lovenox) 40 mg SC DAILY [facility] Last Admin: 01/06/18 10:31 Dose: 40 mg Ketorolac Tromethamine (Toradol) 30 mg IVP Q6 PRN PRN Reason: Pain, moderate (4-7) Ondansetron HCl (Zofran Inj) 4 mg IVP Q6 PRN PRN Reason: Nausea/Vomiting Pantoprazole Sodium (Protonix Ec Tab) 40 mg PO DAILY [facility] Last Admin: 01/06/18 10:31 Dose: 40 mg - Labs Labs: 01/07/18 07:15 01/07/18 07:15 - Additional Findings Additional findings: - Constitutional Appears: No Acute Distress - Head Exam Head Exam: ATRAUMATIC, NORMOCEPHALIC - Eye Exam Eye Exam: EOMI, Normal appearance - ENT Exam ENT Exam: Mucous Membranes Moist - Respiratory Exam Respiratory Exam: Clear to Ausculation Bilateral, NORMAL BREATHING PATTERN. absent: Rales, Rhonchi, Wheezes - Cardiovascular Exam Cardiovascular Exam: REGULAR RHYTHM, +S1, +S2 - GI/Abdominal Exam GI & Abdominal Exam: Soft, Normal Bowel Sounds. absent: Distended, Tenderness - Extremities Exam Extremities Exam: absent: Pedal Edema, Tenderness - Neurological Exam Neurological Exam: Alert, Awake, Oriented x3 - Psychiatric Exam Psychiatric exam: Normal Affect, Normal Mood - Skin Skin Exam: Dry, Warm, Intact Assessment and Plan - Assessment and Plan (Free Text) Assessment: Chest pain -Patient is stable from a cardiac standpoint. -Patient scheduled for Lexiscan stress test today - unremarkable results. Echo 01/06 with EF 80%, grossly normal, see full report. Ddimer negative NI negative EKG grossly normal, see full report CXR negative ASA 81 mg PO daily Toradol 30mg IV q6hrs prn moderate pain Case Discussed with Dr. James Bertrand, PGY2 <Coy Ramirez - Last Filed: 01/07/18 19:29> Objective - Vital Signs/Intake and Output Vital Signs (last 24 hours): Temp Pulse Resp BP Pulse Ox 98.2 F 20 L 73 H 108/76 98 01/07/18 15:02 01/07/18 15:02 01/07/18 15:02 01/07/18 15:02 01/07/18 15:02 - Labs Labs: 01/07/18 07:15 01/07/18 07:15 Assessment and Plan - Assessment and Plan (Free Text) Plan: Patient personally seen and evaluated by me Plan of care discussed with the medical biller and as documented
[2018-01-07] MEDS: Pantoprazole 40 mg EC Tab PO SCH (11:46)
[2018-01-07] MEDS: Enoxaparin 40 mg Syringe SC SCH (11:47)
--- NOTE | 2018-01-07 12:01 | CP.PCM.DIS ---
<Victor Manuel Salazar S - Last Filed: 01/07/18 15:29> Provider - Provider Date of Admission: 01/05/18 17:03 Attending physician: Stacy Jaeger MD Primary care physician: Dr. Osei Consults: Cardiology: Dr. Ramirez Time Spent in preparation of Discharge (in minutes): 35 Diagnosis - Discharge Diagnosis (1) Chest pain, rule out acute myocardial infarction Status: Acute Priority: High Hospital Course - Lab Results Lab Results: Most Recent Lab Values WBC 6.9 K/uL (4.8-10.8) 01/07/18 07:15 RBC 4.29 Mil/uL (3.80-5.20) 01/07/18 07:15 Hgb 13.0 g/dL (11.0-16.0) 01/07/18 07:15 Hct 38.3 % (34.0-47.0) 01/07/18 07:15 MCV 89.4 fL (81.0-99.0) 01/07/18 07:15 MCH 30.4 pg (27.0-31.0) 01/07/18 07:15 MCHC 34.0 g/dL (33.0-37.0) 01/07/18 07:15 RDW 13.1 % (11.5-14.5) 01/07/18 07:15 Plt Count 277 K/uL (130-400) 01/07/18 07:15 MPV 9.2 fL (7.2-11.7) 01/07/18 07:15 Neut % (Auto) 38.4 % (50.0-75.0) L 01/07/18 07:15 Lymph % (Auto) 48.8 % (20.0-40.0) H 01/07/18 07:15 Alexander % (Auto) 10.2 % (0.0-10.0) H 01/07/18 07:15 Eos % (Auto) 1.9 % (0.0-4.0) 01/07/18 07:15 Baso % (Auto) 0.7 % (0.0-2.0) 01/07/18 07:15 Neut # (Auto) 2.7 K/uL (1.8-7.0) 01/07/18 07:15 Lymph # (Auto) 3.4 K/uL (1.0-4.3) 01/07/18 07:15 Alexander # (Auto) 0.7 K/uL (0.0-0.8) 01/07/18 07:15 Eos # (Auto) 0.1 K/uL (0.0-0.7) 01/07/18 07:15 Baso # (Auto) 0.0 K/uL (0.0-0.2) 01/07/18 07:15 D-Dimer, Quantitative < 200 ng/mlDDU (0-243) 01/05/18 17:33 Sodium 141 mmol/L (132-148) 01/07/18 07:15 Potassium 4.0 mmol/L (3.6-5.2) 01/07/18 07:15 Chloride 103 mmol/L (98-107) 01/07/18 07:15 Carbon Dioxide 29 mmol/L (22-30) 01/07/18 07:15 Anion Gap 13 (10-20) 01/07/18 07:15 BUN 16 mg/dL (7-17) 01/07/18 07:15 Creatinine 0.7 mg/dL (0.7-1.2) 01/07/18 07:15 Est GFR ( Amer) > 60 01/07/18 07:15 Est GFR (Non-Af Amer) > 60 01/07/18 07:15 Random Glucose 80 mg/dL (65-105) 01/07/18 07:15 Hemoglobin A1c 5.7 % (4.2-6.5) 01/06/18 04:13 Calcium 8.8 mg/dl (8.6-10.4) 01/07/18 07:15 Total Bilirubin 0.4 mg/dL (0.2-1.3) 01/06/18 04:13 AST 16 U/L (14-36) 01/06/18 04:13 ALT 28 U/L (9-52) 01/06/18 04:13 Alkaline Phosphatase 73 U/L (38-126) 01/06/18 04:13 Total Creatine Kinase 40 U/L (30-135) 01/06/18 06:14 CK-MB (Mass) 0.64 ng/mL (0.0-3.38) 01/06/18 06:14 Troponin I < 0.0120 ng/mL (0.00-0.120) 01/06/18 06:14 NT-Pro-B Natriuret Pep 33.1 pg/mL (0-900) 01/05/18 17:33 Total Protein 7.2 g/dL (6.3-8.3) 01/06/18 04:13 Albumin 3.9 g/dL (3.5-5.0) 01/06/18 04:13 Globulin 3.3 gm/dL (2.2-3.9) 01/06/18 04:13 Albumin/Globulin Ratio 1.2 (1.0-2.1) 01/06/18 04:13 Triglycerides 54 mg/dL (0-149) D 01/06/18 04:13 Cholesterol 156 mg/dL (0-199) 01/06/18 04:13 LDL Cholesterol Direct 72 mg/dL (0-129) 01/06/18 04:13 HDL Cholesterol 61 mg/dL (30-70) 01/06/18 04:13 - Hospital Course Hospital Course: Initial note: "This is a 52 y/o F with no pmhx presenting with c/o chest pain x 5 days. She states that 5 days ago she was trying to board the bus when she slipped, fell forward and hit her chest against the stairs of the bus. When she went to stand up straight she then fell back and landed, seated on the floor. She has had back pain and chest pain for the past 5 days. She went to see Dr. Pruett today who had her bring a script to the ED for further workup of atypical chest pain. She denies any difficulty breathing but does admit that it hurts to take deep breaths in. No fevers or chills. She has pains in her abdomen, localized to the lower quadrants bilaterally which she indicates did make contact during her fall. Additionally she has pain in the lower spinal area- sacrum/coccyx. She has been taking ibuprofen at home for the pain but states that it only helps a little bit." Hospital Course: Patient admitted for work up of chest pain and to rule out ACS. Cardiology was consulted. Three sets of cardiac enzymes were negative. Normal lipid panel. Patient had an unremarkable echocardiogram and a stress test. Patient is cleared for discharge per primary and cardiology teams. This is a summary of the hospital course. For more information, refer to the medical records. Discharge Exam - Additional Findings Additional findings: - Constitutional Appears: No Acute Distress - Head Exam Head Exam: ATRAUMATIC, NORMOCEPHALIC - Eye Exam Eye Exam: EOMI, Normal appearance - ENT Exam ENT Exam: Mucous Membranes Moist - Respiratory Exam Respiratory Exam: Clear to Auscultation Bilateral, NORMAL BREATHING PATTERN. absent: Rales, Rhonchi, Wheezes - Cardiovascular Exam Cardiovascular Exam: REGULAR RHYTHM, +S1, +S2 - GI/Abdominal Exam GI & Abdominal Exam: Soft, Normal Bowel Sounds. absent: Distended, Tenderness - Extremities Exam Extremities Exam: absent: Pedal Edema, Tenderness - Neurological Exam Neurological Exam: Alert, Awake, Oriented x3 - Psychiatric Exam Psychiatric exam: Normal Affect, Normal Mood - Skin Skin Exam: Dry, Warm Discharge Plan - Follow Up Plan Condition: STABLE Disposition: HOME/ ROUTINE Instructions: Heart Healthy Diet, Chest Pain (DC) Additional Instructions: Please follow up with Dr. Osei within 1 week of discharge. If there are any new or worsening symptoms, please go to the nearest emergency room. Por favor, jaimee un seguimiento con el Dr. Osei dentro de 1 semana del lorie. Si hay sntomas nuevos o que empeoran, vaya a la lon de emergencias ms azeem. Referrals: Coy Ramirez MD [Staff Provider] - Natasha Osei MD [Medical Doctor] - <Stacy Jaeger - Last Filed: 01/07/18 17:35> Provider - Provider Date of Admission: 01/05/18 17:03 Attending physician: Stacy Jaeger MD Hospital Course - Lab Results Lab Results: Most Recent Lab Values WBC 6.9 K/uL (4.8-10.8) 01/07/18 07:15 RBC 4.29 Mil/uL (3.80-5.20) 01/07/18 07:15 Hgb 13.0 g/dL (11.0-16.0) 01/07/18 07:15 Hct 38.3 % (34.0-47.0) 01/07/18 07:15 MCV 89.4 fL (81.0-99.0) 01/07/18 07:15 MCH 30.4 pg (27.0-31.0) 01/07/18 07:15 MCHC 34.0 g/dL (33.0-37.0) 01/07/18 07:15 RDW 13.1 % (11.5-14.5) 01/07/18 07:15 Plt Count 277 K/uL (130-400) 01/07/18 07:15 MPV 9.2 fL (7.2-11.7) 01/07/18 07:15 Neut % (Auto) 38.4 % (50.0-75.0) L 01/07/18 07:15 Lymph % (Auto) 48.8 % (20.0-40.0) H 01/07/18 07:15 Alexander % (Auto) 10.2 % (0.0-10.0) H 01/07/18 07:15 Eos % (Auto) 1.9 % (0.0-4.0) 01/07/18 07:15 Baso % (Auto) 0.7 % (0.0-2.0) 01/07/18 07:15 Neut # (Auto) 2.7 K/uL (1.8-7.0) 01/07/18 07:15 Lymph # (Auto) 3.4 K/uL (1.0-4.3) 01/07/18 07:15 Alexander # (Auto) 0.7 K/uL (0.0-0.8) 01/07/18 07:15 Eos # (Auto) 0.1 K/uL (0.0-0.7) 01/07/18 07:15 Baso # (Auto) 0.0 K/uL (0.0-0.2) 01/07/18 07:15 D-Dimer, Quantitative < 200 ng/mlDDU (0-243) 01/05/18 17:33 Sodium 141 mmol/L (132-148) 01/07/18 07:15 Potassium 4.0 mmol/L (3.6-5.2) 01/07/18 07:15 Chloride 103 mmol/L (98-107) 01/07/18 07:15 Carbon Dioxide 29 mmol/L (22-30) 01/07/18 07:15 Anion Gap 13 (10-20) 01/07/18 07:15 BUN 16 mg/dL (7-17) 01/07/18 07:15 Creatinine 0.7 mg/dL (0.7-1.2) 01/07/18 07:15 Est GFR ( Amer) > 60 01/07/18 07:15 Est GFR (Non-Af Amer) > 60 01/07/18 07:15 Random Glucose 80 mg/dL (65-105) 01/07/18 07:15 Hemoglobin A1c 5.7 % (4.2-6.5) 01/06/18 04:13 Calcium 8.8 mg/dl (8.6-10.4) 01/07/18 07:15 Total Bilirubin 0.4 mg/dL (0.2-1.3) 01/06/18 04:13 AST 16 U/L (14-36) 01/06/18 04:13 ALT 28 U/L (9-52) 01/06/18 04:13 Alkaline Phosphatase 73 U/L (38-126) 01/06/18 04:13 Total Creatine Kinase 40 U/L (30-135) 01/06/18 06:14 CK-MB (Mass) 0.64 ng/mL (0.0-3.38) 01/06/18 06:14 Troponin I < 0.0120 ng/mL (0.00-0.120) 01/06/18 06:14 NT-Pro-B Natriuret Pep 33.1 pg/mL (0-900) 01/05/18 17:33 Total Protein 7.2 g/dL (6.3-8.3) 01/06/18 04:13 Albumin 3.9 g/dL (3.5-5.0) 01/06/18 04:13 Globulin 3.3 gm/dL (2.2-3.9) 01/06/18 04:13 Albumin/Globulin Ratio 1.2 (1.0-2.1) 01/06/18 04:13 Triglycerides 54 mg/dL (0-149) D 01/06/18 04:13 Cholesterol 156 mg/dL (0-199) 01/06/18 04:13 LDL Cholesterol Direct 72 mg/dL (0-129) 01/06/18 04:13 HDL Cholesterol 61 mg/dL (30-70) 01/06/18 04:13 Attending/Attestation - Attestation I have personally seen and examined this patient.: Yes I have fully participated in the care of the patient.: Yes I have reviewed all pertinent clinical information, including history, physical exam and plan: Yes Notes (Text): Seen and examined.patient is sitting comfortable and ready to go home. director of student financial services cleared for discharge. patient will follow her primary care I agree with the resident's documentation. Discussed with the resident
[2018-01-07 16:04] VITALS: BP 108/76; PULSE 20; RESP 73; TEMP 98.2; O2SAT 98
--- NOTE | 2018-01-09 19:36 | CARD ---
APPROVED REPORT Protocol: PHARMACOLOGICAL STRESS Test Type: LEXISCAN Test Indications: CHEST PAIN Medications: LIST SCAN Medical History: CHEST PAIN Target HR: 168 bpm Resting ECG: NSR Resting Heart Rate: 67 bpm Resting Blood Pressure: 120/60mmHg submaximum (85%): 143 bpm TEST SUMMARY [id number]/60.0. INFUSIONDOSE 100:[id number]/60.0. [id number]/60.0. PROCEDURE Pharmacologic stress testing was performed using 0.4mg per 5ml of regadenoson given intravenously over 7-10 seconds. Reversal agent aminophyline 125 mg, given intravenously for Chest Pain. POST EXERCISE Reason for Termination: Protocol Completed Target HR: No Max HR: 70 bpm 67% of Maximum Predicted HR: 168 bpm Exercise duration: 00:30 min:sec, 0 Stage Exercise capacity: 1.0METs Max Blood Pressure: 120/60mmHg Blood Pressure response to exercise: normal resting BP - appropriate response Heart Rate response to exercise: appropriate Chest Pain: No, none Angina index: 0 Arrhythmia: No, none ST Change: No, none Deviation: 0 mm INTERPRETATION Stress EKG Conclusion: NEGATIVE LEXISCAN STRESS TEST NORMAL BP RESPONSE TO LEXISCAN NUCLEAR STUDIES TO BE READ SEPARATELY EXAM: Myocardial Perfusion REST/STRESS Imaging Protocol The imaging protocol used to acquire images was Rest Tc-99m/stress Tc-99m 1 day Rest Spect myocardial perfusion imaging was performed in supine position 45 minutes following the injection of 12.9 mCi of Tc-99 Myoview. Gated Stress Spect was performed 45 minutes after intravenous 32.4 mCi Tc-99 Myoview injection. The images were gated to evaluate regional wall motion and calculate ventricular ejection fraction.Images were reconstructed using backfilter projection method in short horizontal and verticle long axis. Spect slices were generated. RESTING DATA EDV60.79mcEB1.90L/min ESV15.00mlMyocardial Mass99.00g Av. Heart Rate64.00bpm EF75.00% STRESS DATA EDV61.35koWJ6.90L/min ESV14.00mlMyocardial Immn411.00g EF77.00% Regional WT score at stress:0.00 Regional WM score at stress:0.00 Summed WT score at stress:0.00 Av. Heart Rate81.00bpmSummed WM score at stress:0.00 LV Perf. Quant 17 Seg. SSS0.00 17 Seg. SRS0.00 17 Seg. SDS0.00 Stress Defect Extent (% LAD)0.00Rest Defect Extent (% LAD)0.00Rev. Defect Extent (% LAD)0.00 Stress Defect Extent (% LCX)5.00Rest Defect Extent (% LCX)0.00Rev. Defect Extent (% LCX)5.00 Stress Defect Extent (% RCA)0.00Rest Defect Extent (% RCA)0.00Rev. Defect Extent (% RCA)0.00 Stress Defect Extent (% LAURA)0.90Rest Defect Extent (% LAURA)0.00Rev. Defect Extent (% LAURA)0.90 Other Information Quality:Good IMPRESSION Normal Myocardial Perfusion exercise stress study Left Ventricle LV Size/Shape: The left ventricle is normal size. LV Function:Left ventricle systolic function is normal. The Ejection Fraction is >70%. Regional Wall Motion:There is normal left ventricular wall motion. Metabolism/Perfusion There are no perfusion/metabolism defects. Conclusion 1. Normal Lexiscan nuclear stress test. Normal EF
== END 2018-01-07 16:24 | disposition home or self-care (01) ==
LOC: C.ER 15:33 → C.9E 17:03 → C.6T 18:19
PROVIDERS: ADMIT Internal Medicine; ATTEND Internal Medicine
DX: R07.89 Other chest pain (principal); J45.909 Unspecified asthma, uncomplicated; S30.0XXA Contusion of lower back and pelvis, initial encounter; W19.XXXA Unspecified fall, initial encounter; Z68.1 Body mass index [BMI] 19.9 or less, adult
CPT/HCPCS: 36415; 71046; 71120; 73522; 78452; 80048; 80053; 80061; 83036; 83880; 84484; 85025; 85378; 93005; 93017; 93306; 96374; 99285; A9502; G0378; J1650; J1885; J2785

== ENCOUNTER 2018-12-14 10:20 | Outpatient (CLI) | payer OTHER | END 2018-12-14 10:21 | disposition home or self-care (01) | LOC: C.LAB 10:20 | DX: Z13.9 Encounter for screening, unspecified (principal) ==